=== PATIENT | female | born 1950 | race Caucasian/White ===

== ENCOUNTER → 2016-12-08 | Outpatient (CLI) | payer MEDICARE, OTHER ==
[~2016-12-08] MED LIST: CALCIUM 500 + D1 TAB PO; CERTAGEN PO; MORPHINE SULFAT30 M3 PO; OXYCODONE-ACET1 EACH PO; PROAIR HFA8.5 GM IN; SYMBICORT INH; [UNRECOGNIZED DRUG - REMARK]
--- NOTE | ~2016-12-08 | MR17 ---
[facility] A Service of [facility] RADIOLOGY TEXT RESULTS PATIENT: CORTNEY HANSEN [facility] UNIT #: [id number] AGE: [address]: Frankie Jenkins MD SEX: F ORDER DR: [id number] [facility] [place], [place] [address] [id number] O MR#: [id number] Acc #: [id number] NAME: CORTNEY HANSEN : 1950 SEX: F STUDY DATE/TIME: 12/08/2016 16:59 UNIT: [facility] ROOM: STUDY DESCRIPTION: MR Brain WWo Contrast Attending Physician: Frankie Jenkins M.D. Referring Physician: Frankie Jenkins M.D. Ordering Physician: Frankie Jenkins M.D. Primary Care Physician: Devin Carlos M.D. MRI CENTER REPORT This report is preliminary unless electronic signature is present. EXAM MR brain INDICATIONS Lung cancer. Observation for metastatic disease. TECHNIQUE Multiplanar MRI of the brain with and without contrast (18 mL MultiHance IV contrast). COMPARISON PET/CT dated 11/19/2016. FINDINGS The midline structures and craniocervical junction are within normal limits. There is no evidence of acute intracranial ischemia. No intracranial hemorrhage. There are multiple enhancing lesions scattered throughout the brain parenchyma. An index lesion in the left basal ganglia measures 1 x 0.7 cm. There is a second index lesion in the rightward aspect of the rosey, measuring 0.9 x 0.7 cm. There are least 12 separate lesions scattered throughout the brain. IMPRESSION The ventricles and basilar cisterns are normal in size and configuration. There is no extraaxial fluid collection. There is abnormal signal within the calvaria including a 4.1-cm metastatic lesion along the right frontotemporal convexity. Smaller lesions in the calvaria are suspected. IMPRESSION 1. Diffuse metastatic disease throughout the brain with at least 12 separate lesions scattered throughout the PHYSICIAN OBSTETRICIAN. [facility] A Service [facility] RADIOLOGY TEXT RESULTS PATIENT: CORTNEY HANSEN LOCATION: [facility] : 51 UNIT #: [id number] AGE: [address]: Frankie Jenkins MD SEX: F ORDER DR: 2. No acute ischemia. 3. Osseous metastatic disease with metastatic disease to the calvaria. Dictated by... Jamal Decker M.D. THIS IS AN ELECTRONICALLY VERIFIED REPORT Jamal Decker M.D. at 12/08/2016 9:46 PM STARR/maria de jesus TD: 12/08/2016 19:00 JOB #: [id number] MRI CENTER REPORT Page 1 of 1 COPY
[2016-12-08 17:51] LABS: POC - CREATININE 0.81 mg/dL (0.44-1.03); POC - GFR >60.0 mL/min (>60)
== END | disposition home or self-care (01) ==
LOC: CMRI 16:02
PROVIDERS: Radiology Radiation Oncology
DX: C34.90 Malignant neoplasm of unspecified part of unspecified bronchus or lung (principal); C79.51 Secondary malignant neoplasm of bone
CPT/HCPCS: 70553; 82565; A9577

== ENCOUNTER → 2017-02-25 | Outpatient (CLI) | payer MEDICARE, OTHER ==
--- NOTE | ~2017-02-25 | CT2 ---
[facility] A Service of [facility] & [facility] RADIOLOGY TEXT RESULTS PATIENT: CORTNEY HANSEN LOCATION: [facility] : 51 UNIT #: [id number] AGE: [address]: Rangel Blank MD SEX: F ORDER DR: [id number] [facility] [address] [place], [place] [address] [id number] O MR#: [id number] Acc #: [id number] NAME: CORTNEY HANSEN : 1950 SEX: F STUDY DATE/TIME: 02/25/2017 16:15 UNIT: [facility] ROOM: STUDY DESCRIPTION: CT Abd and Pelv W Cont Attending Physician: Rangel Blank M.D. Referring Physician: Rangel Blank M.D. Ordering Physician: Rangel Blank M.D. Primary Care Physician: Devin Carlos M.D. MEDICAL IMAGING REPORT This report is preliminary unless electronic signature is present EXAM CT abdomen and pelvis INDICATION Left upper lobe pulmonary malignancy. Remote history of breast cancer. Observation for metastatic disease. Restaging. TECHNIQUE CT of the abdomen and pelvis with p.o. and IV contrast (100 mL Isovue-370 IV contrast). Coronal and sagittal reconstructions were obtained. This CT examination was performed with one or more of the following radiation dose reduction techniques: automatic exposure control, adjustment of mA and/or kV according to patient size, and iterative reconstruction. COMPARISON PET/CT dated 11/19/2016. FINDINGS ABDOMEN: Please refer to a separately dictated report for details on the chest. There is geographic hepatic steatosis throughout the liver. A focal non masslike area of decreased attenuation in the inferior right hepatic lobe near the gallbladder fossa probably represents a focal area of increased steatosis rather than multiple metastatic foci, however, this could be further evaluated with an MRI given the increased detection of steatosis with MRI. The gallbladder is not dilated. No intrahepatic or extrahepatic biliary dilatation. There is a small cyst associated with the tail of the pancreas measuring 1 cm. This is most consistent with a pancreatic pseudocyst. This is unchanged from at least September 2016. There is a left adrenal nodule measuring 1.8 cm. This is unchanged. This had elevated FDG uptake on the recent PET/CT. There are some small periportal and gastrohepatic ligament lymph nodes. These are unchanged from the STS. [facility] A Service of [facility] RADIOLOGY TEXT RESULTS PATIENT: CORTNEY HANSEN LOCATION: [facility] : 51 UNIT #: [id number] AGE: [address]: Rangel Blank MD SEX: F ORDER DR: prior study. No pathologically enlarged retroperitoneal lymph nodes. The bowel is not dilated. The appendix is normal. PELVIS: No enlarged pelvic or inguinal lymph nodes. Bladder is unremarkable. Uterus and left ovary is normal. Right ovary is not clearly identified. There are a few sigmoid colon diverticula. The previously lytic lesion in the right iliac wing has increased in density and now has some interval healing. It continues to measure 1.8 cm. There has been prior surgical repair of the left proximal femur. No new osseous lesions. IMPRESSION 1. Increased sclerosis associated with the previously lytic lesion in the right iliac bone. This is most consistent with healing osseous metastatic disease. 2. 1.8 cm left adrenal nodule is unchanged from the prior study. 3. No evidence of disease progression. Dictated by... Jamal Decker M.D. THIS IS AN ELECTRONICALLY VERIFIED REPORT Jamal Decker M.D. at 02/28/2017 12:59 PM STARR/yuridia TD: 02/28/2017 09:40 JOB #: [id number] MEDICAL IMAGING REPORT Page 1 of 1 COPY
--- NOTE | ~2017-02-25 | MR17 ---
[facility] A Service of [facility] & [facility] RADIOLOGY TEXT RESULTS PATIENT: CORTNEY HANSEN LOCATION: [facility] : 51 UNIT #: [id number] AGE: [address]: Rangel Blank MD SEX: F ORDER DR: [id number] [facility] [address] [place], [place] [address] [id number] O MR#: [id number] Acc #: [id number] NAME: CROTNEY HANSEN : 1950 SEX: F STUDY DATE/TIME: 02/25/2017 14:50 UNIT: [facility] ROOM: STUDY DESCRIPTION: MR Brain WWo Contrast Attending Physician: Rangel Blank M.D. Referring Physician: Rangel Blank M.D. Ordering Physician: Rangel Blank M.D. Primary Care Physician: Devin Carlos M.D. MRI CENTER REPORT This report is preliminary unless electronic signature is present. EXAM MRI of the brain with and without contrast dated 02/25/2017. COMPARISON MRI brain with and without contrast dated 12/08/2016. HISTORY Left breast cancer diagnosed in 2007. Lung cancer with brain metastasis in November 2016. Patient had chemotherapy in December 2016. Patient still has occasional headaches since treatment. Follow up. FINDINGS Multisequence, multiplanar imaging of the brain was obtained with and without contrast. GFR measured greater than 60. 17 mL of MultiHance was administered intravenously. There are about 9-10 lesions in the brain, but they appear to have decreased in overall volume when compared to the prior study. The relatively larger lesion is in the right lateral aspect of the rosey extending close to the midbrain above. It has decreased in size from 7.5 x 9 mm to 8 x 6.5 mm. There is mild adjacent surrounding vasogenic edema seen without any significant mass effect or midline shift. No hydrocephalus or hemorrhage. IMPRESSION 1. There are about 9-10 enhancing lesions scattered in the brain both in the supratentorial, infratentorial regions and the brainstem. They were also noted in the previous study and have decreased in size and volume since prior study from 2 months ago. The lesions are still present, with the relatively larger one in the right side of the brainstem measuring 8.5 x 6.5 mm. 2. Mild associated edema is seen without any significant mass effect, hydrocephalus or midline shift. 3. Continued followup is suggested. [facility] A Service of [facility] & [facility] RADIOLOGY TEXT RESULTS PATIENT: CORTNEY HANSEN [facility] UNIT #: [id number] AGE: [address]: Rangel Blank MD SEX: F ORDER DR: Dictated by... Geovany Mays M.D. THIS IS AN ELECTRONICALLY VERIFIED REPORT Geovany Mays M.D. at 03/02/2017 3:17 PM CPR/psc TD: 03/01/2017 04:05 JOB #: [id number] MRI CENTER REPORT Page 1 of 1 COPY
--- NOTE | ~2017-02-25 | CT55 ---
[facility] A Service of [facility] RADIOLOGY TEXT RESULTS PATIENT: CORTNEY HANSEN [facility] UNIT #: [id number] AGE: [address]: Rangel Blank MD SEX: F ORDER DR: [id number] [facility] [address] [place], [place] [address] [id number] O MR#: [id number] [facility] #: [id number] NAME: CORTNEY HANSEN : 1950 SEX: F STUDY DATE/TIME: 02/25/2017 16:15 [facility] ROOM: STUDY DESCRIPTION: CT Chest W Con Attending Physician: Rangel Blank M.D. Referring Physician: Rangel Blank M.D. Ordering Physician: Rangel Blank M.D. Primary Care Physician: Devin Carlos M.D. MEDICAL IMAGING REPORT This report is preliminary unless electronic signature is present EXAM CT chest INDICATION Malignant neoplasm of the upper outer quadrant of the left breast. Status post lumpectomy and axillary lymph node dissection. Restaging. Observation for metastatic disease. Left upper lobe lung cancer. TECHNIQUE CT of the chest with IV contrast (100 mL Isovue-370 IV contrast). Coronal and sagittal reconstructions were obtained. This CT exam was performed with one or more of the following radiation dose reduction techniques: automatic exposure control, adjustment of mA and/or kV according to patient size, and iterative reconstruction. COMPARISON Concurrent CT abdomen and pelvis 02/25/2017, PET/CT 11/19/[address] chest 09/30/2016. FINDINGS The left upper lobe pulmonary nodule has decreased in size measuring 1.7 x 1.4 cm compared to 2.3 x 2.3 cm on the October PET/CT. There is some associated interstitial thickening and areas of linear consolidation/scarring. This is most consistent with postradiation change. The 0.8 cm solid nodule in the left upper lobe is unchanged. There is emphysema in the lung apices. Mild linear atelectasis or scarring at the right lung base is unchanged. Central airways are patent. No pathologically enlarged mediastinal or hilar lymph nodes. No pericardial or pleural effusion. STS. [facility] A Service of [facility] RADIOLOGY TEXT RESULTS PATIENT: CORTNEY HANSEN LOCATION: [facility] : 51 UNIT #: [id number] AGE: [address]: Rangel Blank MD SEX: F ORDER DR: Please refer to separately dictated report for details on the abdomen. No new osseous abnormalities. No pathologic fractures. There is postsurgical change of lumpectomy and left axillary lymph node dissection. IMPRESSION 1. Partial response to therapy. The left upper lobe pulmonary nodule has decreased in size from the prior study. 2. 0.8 cm satellite nodule in the left upper lobe is unchanged. 3. Development of some linear interstitial and airspace opacities in the left upper lobe most consistent with a radiation pneumonitis. 4. Emphysema. Dictated by... Jamal Decker M.D. THIS IS AN ELECTRONICALLY VERIFIED REPORT Jamal Decker M.D. at 02/28/2017 12:59 PM Magdalena TD: 02/28/2017 09:17 JOB #: [id number] MEDICAL IMAGING REPORT Page 1 of 1 COPY
[2017-02-25 18:40] LABS: POC - CREATININE 0.71 mg/dL (0.44-1.03); POC - GFR >60.0 mL/min (>60)
== END | disposition home or self-care (01) ==
LOC: CCAT 12:59
PROVIDERS: Internal Medicine Medical Oncology
DX: C50.919 Malignant neoplasm of unspecified site of unspecified female breast (principal); D45 Polycythemia vera; R91.1 Solitary pulmonary nodule; J43.9 Emphysema, unspecified; J98.4 Other disorders of lung; E27.8 Other specified disorders of adrenal gland; M89.9 Disorder of bone, unspecified; G93.9 Disorder of brain, unspecified; G93.6 Cerebral edema
CPT/HCPCS: 70553; 71260; 74177; 82565; A9577; Q9967

== ENCOUNTER → 2017-03-09 | Outpatient (CLI) | payer MEDICARE, OTHER ==
[~2017-03-09] VITALS: Ht 160 cm; Wt 82.5 kg
--- NOTE | ~2017-03-09 | XA91 ---
[facility] A Service of [facility] RADIOLOGY TEXT RESULTS PATIENT: CORTNEY HANSEN LOCATION: [facility] : 51 UNIT #: [id number] AGE: [address]: Rangel Blank MD SEX: F ORDER DR: [id number] [facility] [address] [place], [place] [address] [id number] O MR#: [id number] Acc #: [id number] NAME: CORTNEY HANSEN : 1950 SEX: F STUDY DATE/TIME: 03/09/2017 9:32 UNIT: [facility] ROOM: STUDY DESCRIPTION: XA CVC Tunneled W Port Attending Physician: Rangel Blank M.D. Referring Physician: Rangel Blank M.D. Ordering Physician: Rangel Blank M.D. Primary Care Physician: Devin Carlos M.D. MEDICAL IMAGING REPORT This report is preliminary unless electronic signature is present EXAM Fzsrgc-[id number] insertion, 03/09/2017. HISTORY IV access needed. PROCEDURE Informed consent was obtained from the patient. Fentanyl and Versed were administered for IV conscious sedation with hemodynamic monitor provided by the nursing staff throughout the procedure. Total sedation time 45 minutes. This procedure was performed with standard sterile technique including sterile preparation and barrier draping and the use of sterile gowns and gloves, as well as caps and masks. Real-time sterile ultrasound guidance was used to guide venous access and confirm vessel patency and fluoroscopic guidance was used to guide catheter tip positioning. Total fluoroscopy time 0.3 minutes and a single ultrasound image and single fluoroscopic spot image were both preserved. After local anesthesia, the right internal jugular vein was accessed with sterile ultrasound guidance through a small incision, and a peel-away sheath inserted. Standard Seldinger technique was utilized. The chest wall pocket was then created after local anesthesia through a combination of blunt and sharp dissection. The Port-A-Cath was inserted, the catheter tunneled to the venotomy site, measured, cut to length, and inserted via a peel-away sheath. The port cath hub site was then closed with interrupted deep 3-0 Vicryl fascial suture as well as running subcuticular 4-0 Monocryl suture and the venotomy site was closed with a deep 3-0 Vicryl fascial suture. N-butyl STS. [facility] A Service of [facility] RADIOLOGY TEXT RESULTS PATIENT: CORTNEY HANSEN LOCATION: [facility] : 51 UNIT #: [id number] AGE: [address]: Rangel Blank MD SEX: F ORDER DR: cyanoacrylate glue was used at both sites. The Port-A-Cath hub was accessed sterilely, and after blood return, was flushed and packed with a heparin solution. There are no complications. Patient tolerated the procedure well. IMPRESSION Successful ultrasound and fluoroscopically guided placement of a tunneled right IJ Qroson-C-Vvsx catheter without complication. Dictated by... Ronald Padilla M.D. THIS IS AN ELECTRONICALLY VERIFIED REPORT Ronald Padilla M.D. at 03/11/2017 4:50 PM TEV/tmw TD: 03/11/2017 15:59 JOB #: [id number] MEDICAL IMAGING REPORT Page 1 of 1 COPY
[2017-03-09 09:07] LABS: HEMATOCRIT 44.1 % (35.0-45.0); HEMOGLOBIN 14.9 gm/dL (12.0-16.0); MEAN CELL VOLUME 91.2 FL (83-96); MEAN CORPUSCULAR HEMOGLOBIN 30.7 PG (28-34); MEAN CORPUSCULAR HGB CONC 33.7 g/dL (30-36); MEAN PLATELET VOLUME 7.7 FL (6.5-11.5); RED BLOOD COUNT 4.84 X10e (3.90-5.30); RED CELL DISTRIBUTION WIDTH 15.7 % (11.0-15.5); WHITE BLOOD COUNT 7.6 X10e3 (4.0-10.5)
[2017-03-09 09:24] LABS: INR 1.1; PARTIAL THROMBOPLASTIN TIME 25.4 SECONDS (23.5-31.3); PROTHROMBIN TIME (PATIENT) 11.4 SECONDS (10.0-11.7)
== END | disposition home or self-care (01) ==
LOC: CIVR 08:10
PROVIDERS: Internal Medicine Medical Oncology
PROC: 05HM33Z Insertion of Infusion Device into Right Internal Jugular Vein, Percutaneous Approach (ICD-10-PCS; principal; 2017-03-09)
DX: C50.919 Malignant neoplasm of unspecified site of unspecified female breast (principal); Z45.2 Encounter for adjustment and management of vascular access device; D45 Polycythemia vera; J44.9 Chronic obstructive pulmonary disease, unspecified
CPT/HCPCS: 36415; 76937; 77001; 85027; 85610; 85730; 99152; 99153; C1788; J0690; J1642; J2250; J3010